=== PATIENT | female | born 1955 | race Caucasian/White ===

== ENCOUNTER → 2018-04-17 06:49 | Outpatient (CLI) | payer BC, SELFPAY ==
[2018-04-17 08:53] LABS: Cholesterol 242 mg/dL (140-199); HDL Cholesterol 52 mg/dL (40-60); LDL Cholesterol Calculated 155 mg/dL (<100); Triglycerides 173 mg/dL (35-150)
== END ==
PROVIDERS: PCP Internal Medicine; Visit Provider Internal Medicine
DX: E66.9 Obesity, unspecified (principal); E78.5 Hyperlipidemia, unspecified
CPT/HCPCS: 36415; 80061

== ENCOUNTER → 2018-10-03 15:59 | Outpatient (CLI) | payer BC, SELFPAY ==
[2018-10-03 16:38] LABS: Add Manual Diff / Slide Review NO; Basophils Percent Auto 0.8 % (0-2); Eosinophils Percent Auto 3.1 % (2-4); Hematocrit 43.2 % (36-46); Hemoglobin 14.4 g/dL (12.0-16.0); Lymphocytes Percent Auto 22.5 % (25-40); Mean Corpuscular HGB Conc 33.5 % (30-36); Mean Corpuscular Volume 83.7 fL (80-100); Monocytes Percent Auto 8.6 % (3-14); Neutrophils Absolute Auto 3600 /uL (3000-5900); Platelet Count 181 X10^3/uL (150-400); Red Blood Cell Count 5.16 X10^6/uL (4.0-5.2); Red Cell Distribution Width 14.1 % (11.6-14.8); White Blood Cell Count 5.5 X10^3/uL (4.5-11.0)
[2018-10-03 17:03] LABS: Erythrocyte Sedimentation Rate 18 MM/HR (0-20)
[2018-10-03 17:41] LABS: Alanine Aminotransferase 31 IU/L (9-52); Albumin 4.4 g/dL (3.5-5.0); Albumin Globulin Ratio 1.6 (1.0-2.8); Alkaline Phosphatase 84 U/L (38-126); Aspartate Aminotransferase 17 IU/L (14-36); BUN Creatinine Ratio 23.8 (6-22); Bilirubin Total 0.3 mg/dL (0.2-1.3); Blood Urea Nitrogen 19 mg/dL (7-17); Calcium 9.8 mg/dL (8.4-10.2); Carbon Dioxide 23 mmol/L (22-32); Chloride 106 mmol/L (98-107); Estimated Glomerular Filt Rate > 60.0 mL/min (>60); Globulin 2.7 g/dL (1.7-4.1); Glucose 91 mg/dL (80-110); HEMOLYSIS 20 (0-50); Lipase 108 U/L (23-300); Potassium 4.2 mmol/L (3.4-5.1); Sodium 143 mmol/L (137-145); Total Protein 7.1 g/dL (6.3-8.2)
== END ==
PROVIDERS: Family Provider Internal Medicine; PCP Internal Medicine; Visit Provider Internal Medicine
DX: R10.32 Left lower quadrant pain (principal)
CPT/HCPCS: 36415; 80053; 83690; 85025; 85651

== ENCOUNTER → 2018-10-04 06:51 | Outpatient (CLI) | payer BC, SELFPAY ==
--- NOTE | 2018-10-04 08:39 | DI.CT.S_ITS ---
PROCEDURE: CT ABDOMEN PELVIS W CON INDICATIONS: ABDOMINAL PAIN/R LOWER QUADRANT TECHNIQUE: After the administration of oral and intravenous contrast, 5 mm thick sections acquired from the diaphragms to the symphysis. 5 mm thick coronal and sagittal reformats were performed. For radiation dose reduction, the following was used: automated exposure control, adjustment of mA and/or kV according to patient size. COMPARISON: None. FINDINGS: Image quality: Excellent. ABDOMEN: Lung bases: Lung bases are clear. Heart size is normal. Solid organs: Hepatic steatosis otherwise liver is normal in size and enhancement. Gallbladder is unremarkable. Biliary system is non-dilated. Pancreas enhances normally. Spleen is normal in size and enhancement. No adrenal nodules. Kidneys are normal in size and enhancement, without hydronephrosis. Peritoneum and bowel: Presumed duodenal diverticulum. Possible distal esophageal wall thickening. Stomach, small bowel, and colon loops are normal in caliber and wall thickness. No free fluid or air. Appendix appears enlarged measuring 10 mm in diameter. There is periappendiceal fat stranding. No abscess identified. No definite appendicolith is seen. Nodes and vessels: No retroperitoneal or mesenteric adenopathy. Aorta and inferior vena cava are normal in caliber. Miscellaneous: No ventral hernias. PELVIS: Genitourinary: Bladder wall thickness is normal. Miscellaneous: No inguinal hernias or adenopathy. Bones: No suspicious bony lesions. No vertebral body compression fractures. Prominent exostosis arising off the left inferior pubic ramus. IMPRESSION: Acute appendicitis. No abscess identified. Findings immediately and personally telephoned and discussed with Dr. Duque, covering for Dr. Rodriguez, on 10/04/18 at 1045 hours. Dictated by: Ariel Decker M.D. on 10/04/2018 at 10:37 Approved by: Ariel Decker M.D. on 10/04/2018 at 10:47
[2018-10-04 08:42] LABS: Adenovirus F 40/41 Not Detected (Not Detect); Astrovirus Not Detected (Not Detect); Campylobacter Not Detected (Not Detect); Clostridium difficile toxin AB Not Detected (Not Detect); Cryptosporidium Not Detected (Not Detect); Cyclospora cayetanensis Not Detected (Not Detect); Entamoeba histolytica Not Detected (Not Detect); Enteroaggregative E.coli Not Detected (Not Detect); Enteropathogenic E.coli Not Detected (Not Detect); Enterotoxigenic E.coli It/st Not Detected (Not Detect); Giardia lamblia Not Detected (Not Detect); Norovirus GI/GII Not Detected (Not Detect); Plesiomonsa shigelloides Not Detected (Not Detect); Rotavirus A Not Detected (Not Detect); Salmonella Not Detected (Not Detect); Sapovirus Not Detected (Not Detect); Shiga-like toxin-prod E.coli Not Detected (Not Detect); Shigella/Enteroinvasive E.coli Not Detected (Not Detect); Vibrio Not Detected (Not Detect); Vibrio cholerae Not Detected (Not Detect); Yersinia enterocolitica Not Detected (Not Detect)
== END ==
PROVIDERS: PCP Internal Medicine; Visit Provider Internal Medicine
DX: K35.80 Unspecified acute appendicitis (principal); R10.31 Right lower quadrant pain
CPT/HCPCS: 74177; 87507; Q9967

== ENCOUNTER 2018-10-04 17:26 | Observation (INO) | payer BC, SELFPAY ==
[2018-10-04 18:35] VITALS: BP 133/65; PULSE 64; RESP 16; TEMP 36.4; O2SAT 98
--- NOTE | 2018-10-04 18:56 | PM.HP.1 ---
History of Present Illness Date Patient Seen: 10/04/18 Time Patient Seen: 18:39 Chief complaint: APPENDICTIS Narrative: The patient is a woman who has been having months of abdominal bloating. She has had some vague fleeting discomfort across her abdomen for weeks. For the last 6 days she had pain that settled in the right lower quadrant. It was worse with bending over or walking. She has been a little anorexic but no vomiting. Last colonoscopy was over 5 years ago. She has a family history of colon cancer in her grandmother. He chews hungry. She had a pastry this morning at about 9 along with some tea and then drank 16 oz of Gatorade about 5:00 p.m. before the results of her CT scan were known to her. She has not really been running a fever. Patient History Surgical History History of bilateral carpal tunnel release (Resolved) History of left breast biopsy (Resolved) Family & Social History Tobacco & Substance use: Smoking Status Never smoker Meds Home Medications Medication Instructions Recorded Confirmed Type azithromycin 250 mg tablet See Label Instructions PO .COMPLEX 05/17/18 Rx #6 tab Allergies Allergy/AdvReac Type Severity Reaction Status Date / Time Sulfa (Sulfonamide Allergy Unknown Verified 10/04/18 19:00 Antibiotics) [SULFA (SULFONAMIDE ANTIBIOTICS)] Review of Systems Review of Systems Patient denies any double vision pain arise earache sore throat or trouble swallowing. No asthma. She did have symptoms that she was coming down with a cold earlier in the week but that resolved. No chest pain or heart problems. She was having some numbness in her arms and underwent a cardiac workup that was negative. No hypertension. Patient denies black or bloody bowel movements. No seizures or blackouts. No problems with her thyroid pancreas she is aware of. No unusual bruising or bleeding. Exam Narrative Exam Narrative: Operative pleasant woman in no apparent distress. Vital signs noted. Her eyes are nonicteric. Pupils equal round react to light. Conjunctiva pink. No swelling of the lids. Nasal septum midline. No polyps seen. Oral mucosa is pink moist. Teeth are intact. No open lesions. Lips have no splits. Gums appear to be healthy. [place] neck is supple. There are no nodes in the neck or supraclavicular areas. Trachea is midline and mobile. Thyroid is not enlarged. There are no masses that could thyroid. Lungs are clear to auscultation without rales or rhonchi. Equal percussion. Heart regular rate and rhythm without murmur gallop. No bruit in the neck. Her abdomen is protuberant soft. No ventral hernias. No masses. Localized tenderness the right lower quadrant. Small bruise to the left of the umbilicus. Patient's legs are hairless from shaving. She has 2+ dorsalis pedis pulses bilaterally. No open lesions of her lower extremities or arms. Extraocular movements are intact. Tongue is midline face is symmetric uvula elevates in the midline. Patient's speech rate and content are appropriate affect is appropriate. She is oriented. Objective Imaging CT scan - abdomen: My impression: Inflammatory changes near the cecum. Very localized. Labs Labs: Reported to me by Dr. Duque white blood cell count is 13. Assessment & Plan (1) Right lower quadrant pain: Problem details: Frankly, this patient's symptoms are a bit unusual. She has been having vague abdominal bloating for months. She has had pain for about 6 days and I would have expected a perforation and abscess by now. That is not apparent on her CT scan. In fact I would expect her to be much more tender than she is. Could be something unusual going on or it may just be an appendix that has been sealed by the omentum and surrounding intestine. In any event I would repair recommended laparoscopy and appendectomy. I have discussed this with the patient in the presence of her . Risks of bleeding infection abscess formation discussed. Possibly use of a drain discussed. She appears to understand. All questions answered. Current visit: Yes Status: Acute
[2018-10-04] MEDS: CEFOTETAN 2 GM/50 ML PIGGYBACK IV (19:04)
[2018-10-04] MEDS: DEXTROSE 5%-LACTATED RINGERS 1,000 ML 125 ML IV (19:04)
[2018-10-04 19:34] VITALS: BMI 34.2
[2018-10-04] MEDS: ENOXAPARIN 40 MG/0.4 ML SYRINGE SUBCUT (20:15)
--- NOTE | 2018-10-04 21:02 | PC.NURSE ---
Patient is A&O x3 pleasant and cooperative w/ staff and able to make needs known when needed. Patient signed consent form w/ this nurse after discussing plan and surgery with Dr. Mcclure tomorrow. Patient reports she has no questions and that all were answered by provider and nursing staff. Patient does report to the this nurse of her concerns with sensitivity to anesthesia as she is very ill with N/V for several days post-op. Explained to patient that this will be noted in nurse note and passed along in shift report to be re-iderated to surgical staff in AM. Patient understand to use call light w/ needs, call light w/ in reach, bed in low pos.
[2018-10-04 21:34] VITALS: BP 119/74; PULSE 54; RESP 16; TEMP 36.6; O2SAT 97
[2018-10-04 23:20] VITALS: BP 111/77; PULSE 58; RESP 18; TEMP 36.7; O2SAT 97
[2018-10-05] VITALS (13 sets, daily range): BP systolic 101–137; BP diastolic 52–81; PULSE 58–93; RESP 14–18; TEMP 36.4–36.8; O2SAT 93–99; BMI 34.2
--- NOTE | 2018-10-05 | PATH_ITS ---
[facility] Accession Number: [id number] . 01 Material submitted: . APPENDIX . 02 Diagnosis: Appendix, Appendectomy: Acute appendicitis with perforation. No evidence of neoplasm. MRV/10/09/2018 . 02 Electronically signed: . Missael Obregon MD, PhD, Pathologist NPI- [id number] . 01 Gross description: . Received in formalin, labeled appendix, is an intact appendix (length-3.3 cm, diameter-0.9 cm) with a culp-pink smooth and shiny serosa and attached mesoappendix (up to 3.0 cm in depth). The resection margin is received opened. The lumen is stenotic and void of contents. The wall is up to 0.4 cm thick. Multiple perforations are identified opening into the mesoappendix. The resection margin is inked black. Section code: (A1) resection margin en face and two additional serial sections; (A2) one-half of the bivalved tip. ([id number]) /[facility] . 02 Pathologist provided ICD-10: K35.20 . 02 CPT . 090261 Performed at: 01 [facility] [address], [place], [place] [id number] MD Ralph Cazares MD Phone: [phone] Performed at: 02 [facility] [address] [place], [place] [id number] MD Claudia Dennis MD Phone: [phone]
[2018-10-05] MEDS: metroNIDAZOLE 500 MG/100 ML PIGGYBACK 100 MG IV ×5 (00:21→22:10)
[2018-10-05] MEDS: DEXTROSE 5%-LACTATED RINGERS 1,000 ML 125 ML IV (04:42)
[2018-10-05 05:58] LABS: Add Manual Diff / Slide Review NO; Basophils Percent Auto 0.5 % (0-2); Eosinophils Percent Auto 3.6 % (2-4); Hematocrit 41.2 % (36-46); Hemoglobin 13.8 g/dL (12.0-16.0); Lymphocytes Percent Auto 25.3 % (25-40); Mean Corpuscular HGB Conc 33.5 % (30-36); Mean Corpuscular Hemoglobin 27.9 PG (26-34); Mean Corpuscular Volume 83.1 fL (80-100); Monocytes Percent Auto 9.3 % (3-14); Neutrophils Absolute Auto 2300 /uL (3000-5900); Neutrophils Percent Auto 61.3 % (50-75); Platelet Count 160 X10^3/uL (150-400); Red Blood Cell Count 4.96 X10^6/uL (4.0-5.2); White Blood Cell Count 3.7 X10^3/uL (4.5-11.0)
[2018-10-05 06:04] LABS: BUN Creatinine Ratio 12.2 (6-22); Blood Urea Nitrogen 11 mg/dL (7-17); Calcium 9.2 mg/dL (8.4-10.2); Carbon Dioxide 29 mmol/L (22-32); Chloride 107 mmol/L (98-107); Estimated Glomerular Filt Rate > 60.0 mL/min (>60); Glucose 122 mg/dL (80-110); HEMOLYSIS < 15 (0-50); Potassium 4.3 mmol/L (3.4-5.1); Sodium 144 mmol/L (137-145)
[2018-10-05] MEDS: LACTATED RINGERS 1,000 ML 42 ML IV ×2 (08:00→09:34)
[2018-10-05] MEDS: APREPITANT 40 MG CAPSULE PO (08:10)
--- NOTE | 2018-10-05 08:25 | PM.PREOP ---
Pre-operative Note Interval Note Pre-op Check: Yes History & Physical Reviewed by Physician and Yes Exam Performed Changes: No
[2018-10-05] MEDS: CEFOTETAN 2 GM/50 ML PIGGYBACK IV ×2 (08:30→17:45)
--- NOTE | 2018-10-05 08:53 | SUR.OPER ---
Supine on padded OR bed, head on pillow, arm padded and tucked at side, legs uncrossed, safety belt at thigh, tape over blanket over lower legs .
[2018-10-05] MEDS: BUPIVACAINE 0.5% (PF) VIAL 30 ML INJ (09:12)
--- NOTE | 2018-10-05 10:13 | PM.OP.1 ---
Operative Date/Time/Diagnoses Date of procedure: 10/05/18 Time of procedure: 10:05 Pre-op diagnosis: Appendicitis acute Post-op diagnosis: same Procedure & Clinicians Procedure: Laparoscopic appendectomy Same procedure as scheduled: Yes Indications: Right lower quadrant pain and tenderness, elevated white blood cell count , and an abnormal CT scan Surgeon: Kwasi Mcclure Click Yes if Unassisted: Yes Anesthesia Type: General Operative Notes Findings: Thickened mildly red appendix with a normal base Closure Type: primary Estimated Blood Loss (mL): 10 Blood products transfused: none Procedure in detail: Patient is placed supine on the operating room table and underwent general endotracheal anesthesia. She was prepped and draped in the usual fashion. Local anesthetic was infiltrated and a curvilinear incision made beneath the umbilicus. She had a very thick layer of subcutaneous fat and was difficult to enter the abdomen. Fascia was opened and stay sutures were placed in the fascia of 0 Polysorb. The peritoneum was entered and a Rodriguez cannula was inserted. Abdomen was insufflated and 2 additional ports were placed in the abdominal wall. One was between the pubis in the umbilicus and the 2nd was in the left lower quadrant. The appendix was readily identified is a thickened slightly reddened structure with a normal base. I divided the mesoappendix and cauterized the artery. The base was cleared and the loop of 0 PDS was placed at the base of the appendix. A clamp was placed across the appendix and the appendix was divided between the clamp on the tie. The mucosa was cauterized and the appendix was immediately placed in a bag and removed without spillage. The right lower quadrant irrigated as was the pelvis. It was suctioned free of fluid. No other abnormalities were seen. The uterus was normal in appearance. I saw no evidence of any kind of malignancy the omental caking or abnormalities of the small bowel. The liver looked normal. The ports were all removed. The stay sutures at the umbilicus were tied and additional 2 0 Maxon was placed between the the the the stay sutures. Wounds were irrigated and the skin was the 4 0 Polysorb subcuticular stitch and Steri-Strips. Dressing was applied the patient was awakened extubated taken to recovery area good condition. Complications: none Condition: stable Disposition: PACU
--- NOTE | 2018-10-05 10:24 | SUR.PHASEI ---
LR infused 1200 since admit to PACU
[2018-10-05] MEDS: LACTATED RINGERS 1,000 ML 125 ML IV ×2 (11:55→22:09)
[2018-10-05] MEDS: MORPHINE 4 MG/ML INJ IV (12:05)
[2018-10-05] MEDS: IBUPROFEN 600 MG TABLET PO (12:44)
[2018-10-05] MEDS: ONDANSETRON 4 MG/2 ML INJ IV ×2 (12:50→16:32)
--- NOTE | 2018-10-05 15:55 | PC.NURSE ---
Pt returned to the floor from PACU at 1030; IV fluids infusing; O2 RA=98%; CPAP for sleeping; Pt reported severe gastric pain, improved with IV morphine and PO Ibuprofen; IV zofran for mild nausea, pt tolerating clear liquids; pt also reports muscle tightness to right shoulder, this RN massaged shoulder for 10 min; 3 bandages to lap incisions c/d/i; pt's in room
[2018-10-05] MEDS: SCOPOLAMINE 1 PATCH TOP (17:38)
[2018-10-05] MEDS: METOCLOPRAMIDE 10 MG/2 ML INJ IV (17:38)
[2018-10-05] MEDS: ENOXAPARIN 40 MG/0.4 ML SYRINGE SUBCUT (22:13)
--- NOTE | 2018-10-05 22:40 | PC.NURSE ---
10/05 2240; pt took a walk in ward at 1600, tolerated well and sat in chair in preparation for dinner, started feel queezy and asked for prn antiemetic around 1645, emesis produced by 1700. With continued nausea post zofran administration, notified and new orders received, scopalamine patch administered along with IV reglan. Pt requested to take nap and stated complete relief after hour nap at 1900, tolerated soup, juice and cup of tea. Denies any more nausea and denies pain. Otherwise VSS on RA, lap sites c/d/i. Pt states to have not yet passed gas at end of shift.
[2018-10-06] VITALS: O2SAT 94
[2018-10-06] MEDS: metroNIDAZOLE 500 MG/100 ML PIGGYBACK 100 MG IV (05:17)
[2018-10-06 06:24] VITALS: BP 102/61; PULSE 54; RESP 16; TEMP 36.6; O2SAT 96
[2018-10-06] MEDS: CEFOTETAN 2 GM/50 ML PIGGYBACK IV (06:25)
[2018-10-06 08:00] VITALS: BP 115/57; PULSE 45; RESP 16; TEMP 36.6; O2SAT 99
[2018-10-06 08:30] VITALS: O2SAT 99
[2018-10-06] MEDS: ENOXAPARIN 40 MG/0.4 ML SYRINGE SUBCUT (09:00)
[2018-10-06] MEDS: LACTATED RINGERS 1,000 ML 125 ML IV (09:01)
--- NOTE | 2018-10-06 10:27 | P.DS_ITS ---
History of Present Illness Chief complaint: APPENDICTIS Narrative: The patient is a woman who has been having months of abdominal bloating. She has had some vague fleeting discomfort across her abdomen for weeks. For the last 6 days she had pain that settled in the right lower quadrant. It was worse with bending over or walking. She has been a little anorexic but no vomiting. Last colonoscopy was over 5 years ago. She has a family history of colon cancer in her grandmother. He chews hungry. She had a pastry this morning at about 9 along with some tea and then drank 16 oz of Gatorade about 5:00 p.m. before the results of her CT scan were known to her. She has not really been running a fever. Discharge Providers Date of admission: 10/04/18 17:26 Primary care physician: Inder Rodriguez MD Consults: 10/05/18 10:47 Consult to Discharge Planning Routine Comment: Discharge provider: Kwasi Mcclure MD Discharge Date: 10/06/18 Summary Discharge Diagnosis: 1. acute appendicitis 2. Acute Postoperative nausea most likely related to intraoperative narcotics. Resolved at discharge Hospital Course: Patient underwent a laparoscopic appendectomy the morning after her admission. She had had p.o. immediately prior to arrival so we waited until the morning to perform her operation. Her postoperative course was smooth except for some episodes of nausea and vomiting. These resolved with medication and she was tolerating a general diet at discharge. She is to use the pain medication she has at home. She would like to avoid these narcotics given her nausea. She can remove the scope L [place] patch in a couple of days. She should wash the area and her hands carefully and avoid touching her eyes. Status at Discharge Cognitive/behavioral status at discharge: Normal Functional status at discharge: independent ambulation Overall status at discharge: patient is progressing back to baseline ( Recovering from operation) Time Spent with Patient Less than 30 minutes Exam Vital Signs (past 8 hours): - 10/06/18 06:24 10/06/18 08:00 Temperature 97.8 F 97.9 F Pulse Rate 54 L 45 L Respiratory Rate 16 16 Blood Pressure 102/61 115/57 L Pulse Oximetry 96 99 Oxygen Delivery Method Room Air Narrative Exam Narrative: Lungs are clear to auscultation no rales or rhonchi heart regular rate and rhythm without murmur gallop. Abdomen is soft no unusual tenderness. Some bruising about the umbilicus is seen. Her vital signs are within normal limits. Objective Labs Result Diagrams: 10/05/18 05:40 10/05/18 05:40 Discharge Plan Discharge Plan Patient Disposition: Home Discharge comment: You had a laparoscopic appendectomy. You will probably have bruising around her belly button. Do not plan to return to work until next week. He should call my office to make an appointment to be seen by me in 1-[address] you are pain free off medication. You can use Tylenol or Motrin/ibuprofen at home. Use up to 600 mg 4 times a day of the ibuprofen or 800 mg 3 times a day. Try to take it with food. Use a laxative of choice should he become constipated. He may use MiraLax daily as well. Discharge Med Rec/Prescriptions Prescriptions: Continue fluconazole 150 mg Tablet 150 mg PO Q3D RF: 0 Alertec 10 mg tablet 10 mg PRN PRN (Reason: Allergy Symptoms) RF: 0 Aspir-Low 81 mg 81 mg DAILY RF: 0 Discontinued metronidazole 250 mg Tablet 250 mg PO QID RF: 0 levofloxacin 500 mg Tablet 500 mg PO DAILY RF: 0 Provider Discharge Instructions Diet: Diet as Tolerated Activity: Do not lift over 10 lb or strain for 4 weeks. Avoid pool or tub for least [address] you are pain free off medication. Skin/Wound/Dressing Care Report to your healthcare provider any signs of infection, such as:: chills, fever, night sweats, increased pain and unusual drainage Dressing: You may remove the Band-Aids tomorrow and shower. Leave the tape under the Band-Aids fall off on their own. Discharge Data Primary Care Provider: Inder Rodriguez Attending Provider: Kwasi Mcclure Admit Date/Time: 10/04/18 17:26
--- NOTE | 2018-10-06 11:04 | PC.NURSE ---
Pt ready for discharge home. Spouse is at the bedside. Pt IV removed. NO new prescriptions/no narcotics. Reviewed d/c info with Pt and Spouse-discussed showering, wound care, stroke education, diet, constipation resolution. Pt denied further questions and is ready to be taken out to POV with Spouse and all belongings.
== END 2018-10-06 11:13 | disposition home or self-care (01) ==
PROVIDERS: Admitting Provider Specialist; PCP Internal Medicine; Visit Provider Specialist
PROC: 0DTJ4ZZ Resection of Appendix, Percutaneous Endoscopic Approach (ICD-10-PCS; CPT 44970; principal; 2018-10-05 08:00)
DX: K35.32 Acute appendicitis with perforation, localized peritonitis, and gangrene, without abscess (principal); R10.31 Right lower quadrant pain
CPT/HCPCS: 44970; 36415; 74177; 80048; 85025; 87507; G0378; G0379; J1100; J1650; J2270; J2405; J2704; J2765; J3010; J7121; J8501; Q9967

== ENCOUNTER → 2018-12-24 06:39 | Outpatient (CLI) | payer BC, SELFPAY ==
[2018-10-07 16:19] VITALS: BMI 34.2
[2018-12-24 12:17] LABS: Adenovirus F 40/41 Not Detected (Not Detect); Astrovirus Not Detected (Not Detect); Campylobacter Not Detected (Not Detect); Clostridium difficile toxin AB Not Detected (Not Detect); Cryptosporidium Not Detected (Not Detect); Cyclospora cayetanensis Not Detected (Not Detect); Entamoeba histolytica Not Detected (Not Detect); Enteroaggregative E.coli Not Detected (Not Detect); Enteropathogenic E.coli Not Detected (Not Detect); Enterotoxigenic E.coli It/st Not Detected (Not Detect); Giardia lamblia Not Detected (Not Detect); Norovirus GI/GII Not Detected (Not Detect); Plesiomonsa shigelloides Not Detected (Not Detect); Rotavirus A Not Detected (Not Detect); Salmonella Not Detected (Not Detect); Sapovirus Not Detected (Not Detect); Shiga-like toxin-prod E.coli Not Detected (Not Detect); Shigella/Enteroinvasive E.coli Not Detected (Not Detect); Vibrio Not Detected (Not Detect); Vibrio cholerae Not Detected (Not Detect); Yersinia enterocolitica Not Detected (Not Detect)
== END ==
PROVIDERS: PCP Internal Medicine; Visit Provider Internal Medicine
DX: R10.30 Lower abdominal pain, unspecified (principal); R19.7 Diarrhea, unspecified
CPT/HCPCS: 87507

== ENCOUNTER → 2019-01-29 16:08 | Outpatient (CLI) | payer MEDICARE, SELFPAY ==
[2018-10-07 16:19] VITALS: BMI 34.2
--- NOTE | 2019-01-29 | DI.MG.S_ITS ---
BILATERAL DIGITAL SCREENING MAMMOGRAM 3D/2D WITH CAD: 01/29/2019 CLINICAL: Routine screening. Family history of breast cancer. Comparison is made to exams dated: 01/23/2018 mammogram, 06/28/2016 mammogram, 10/06/2014 mammogram - [facility], and 11/08/2012 mammogram - [facility]. There are scattered fibroglandular elements in both breasts. Current study was also evaluated with a Computer Aided Detection (CAD) system. There are benign post operative findings in the left breast. No significant masses, calcifications, or other findings are seen in either breast. There has been no significant interval change. IMPRESSION: There is no mammographic evidence of malignancy. A 1 year screening mammogram is recommended. This exam was interpreted at Station ID: [id number]. NOTE: For mammograms, a report in lay terms will be sent to the patient. Approximately 15% of breast malignancies will not be visualized mammographically. In the management of a palpable breast mass, a negative mammogram must not discourage biopsy of a clinically suspicious lesion. Electronically Signed By: Tony oh/janny:01/29/2019 18:33:03 letter sent: Normal Exam ACR BI-RADS Category 2: Benign Finding(s) 3342F
== END ==
PROVIDERS: PCP Internal Medicine; Visit Provider Internal Medicine
DX: Z12.31 Encounter for screening mammogram for malignant neoplasm of breast (principal); Z80.3 Family history of malignant neoplasm of breast
CPT/HCPCS: 77063; 77067

== ENCOUNTER → 2019-11-06 07:25 | Outpatient (CLI) | payer MEDICARE, SELFPAY ==
[2018-10-07 16:19] VITALS: BMI 34.2
--- NOTE | 2019-11-06 | DI.MRI.S_ITS ---
PROCEDURE: MR WRIST LT W CON INDICATIONS: EXTENSOR INTERSECTION SYNDROME OF LEFT WRIST TECHNIQUE: After the administration of 3-4 mL of dilute intra-articular Gadolinium contrast into the radiocarpal compartment, coronal T1 spin echo with fat saturation and T2 fast spin echo with fat saturation, axial T1 spin echo and T2 fast spin echo with fat saturation, sagittal T1 spin echo with and without fat saturation through the wrist. COMPARISON: [facility], CR, XR WRIST 3+ VIEWS LEFT, 08/01/2019, 7:57. FINDINGS: Image quality: Excellent. Bones and cartilage: The carpal bones are normally aligned. Osteoarthritic changes are noted along radial aspect of left wrist particularly involving first CMC joint and scaphotrapezial joint. There is marrow edema involving distal portion of scaphoid. No discrete fracture line is seen and likely represent bony contusion. No other area of abnormal marrow signal is seen. Carpal ligaments: The scapholunate and lunotriquetral ligaments appear intact, without gadolinium extravasation into the mid-carpal compartment. The radioscaphocapitate and radiolunotriquetral ligaments appear intact. The arcuate ligament and short radiolunate ligament also appear normal. The dorsal intercarpal and radiotriquetral ligaments appear intact. On sagittal images, the pisohamate ligament appears intact. Triangular fibrocartilage complex: The triangular fibrocartilage disc, with its styloid and foveal lamina, appears intact. No gadolinium extravasation into the distal radioulnar joint. The adjacent meniscal homolog appears normal. The ulnar collateral ligament appears intact. The extensor carpi ulnaris tendon is normal in location and morphology. Tendons and soft tissues: The carpal tunnel structures appear normal, including the median nerve. The ulnar nerve appears normal within Guyon's canal. There is markedly thickened abductor pollicis longus tendon and extensor pollicis brevis tendon with heterogeneous intrasubstance hyperintensity T2 signal and small amount of fluid surrounding tendon sheath consistent with tenosynovitis and tendinosis in the above-mentioned extensor tendons. Rest of the extensor tendon compartments demonstrate normal morphology, without pathologic tendon sheath fluid. No soft tissue ganglion cysts. IMPRESSION: 1. Tenosynovitis and tendinosis involving extensor pollicis brevis and abductor pollicis longus tendons beginning at the level of distal radius extending to the level of first CMC joint. No full-thickness tendon rupture. 2. Rest of tendons and ligaments are intact. Regular fibrocartilage complex is intact. 3. 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 No fracture or dislocation. Likely bony contusion involving distal portion of scaphoid. Dictated by: Oliver Hudson M.D. on 11/06/2019 at 9:38 Approved by: Oliver Hudson M.D. on 11/06/2019 at 10:09
--- NOTE | 2019-11-06 | DI.RAD.S_ITS ---
PROCEDURE: FL WRIST INJECTION MR/CT LT INDICATIONS: EXTENSOR INTERSECTION SYNDROME OF LEFT WRIST TECHNIQUE: After informed consent had been obtained, the wrist was examined fluoroscopically, and a site chosen for injection of the radiocarpal compartment from a dorsal approach. Skin was prepped and draped in a sterile fashion and 1% lidocaine infiltrated from the skin down to the articular surface. A hypodermic needle was then introduced into the articular space and a modest amount of contrast medium was instilled confirming intra-articular needle tip placement, by Dr. Romero. This was followed by approximately 4 mL of a dilute gadolinium solution. Needle was removed and dressing was applied. The patient experienced no complications throughout the procedure and left the fluoroscopic suite in no apparent distress. FINDINGS: A single fluoroscopic spot image demonstrates intra-articular location to injected iodinated contrast. IMPRESSION: Successful fluoroscopic-guided administration of dilute Gadolinium solution for wrist MR arthrogram. Dictated by: Keshawn Ford M.D. on 11/07/2019 at 17:44 Approved by: Keshawn Ford M.D. on 11/07/2019 at 17:45
== END ==
PROVIDERS: PCP Internal Medicine; Visit Provider Orthopaedic Surgery
DX: M65.832 Other synovitis and tenosynovitis, left forearm (principal); M19.032 Primary osteoarthritis, left wrist
CPT/HCPCS: 20605; 73222; 76000

== ENCOUNTER → 2020-01-28 07:02 | Outpatient (CLI) | payer MEDICARE, SELFPAY ==
[2018-10-07 16:19] VITALS: BMI 34.2
[2020-01-28 08:09] LABS: Add Manual Diff / Slide Review NO; Basophils Absolute Auto 0 /uL (0-100); Eosinophils Absolute Auto 100 /uL (0-450); Eosinophils Percent Auto 2.9 % (2-4); Hematocrit 45.4 % (36-46); Hemoglobin 15.2 g/dL (12.0-16.0); Lymphocytes Absolute Auto 800 /uL (1100-4500); Lymphocytes Percent Auto 17.4 % (25-40); Mean Corpuscular HGB Conc 33.5 % (30-36); Mean Corpuscular Volume 83.5 fL (80-100); Monocytes Absolute Auto 300 /uL (0-900); Monocytes Percent Auto 6.8 % (3-14); Neutrophils Absolute Auto 3400 /uL (1500-7000); Neutrophils Percent Auto 71.9 % (50-75); Platelet Count 173 X10^3/uL (150-400); Red Blood Cell Count 5.44 X10^6/uL (4.0-5.2); Red Cell Distribution Width 14.6 % (11.6-14.8); White Blood Cell Count 4.7 X10^3/uL (4.5-11.0)
[2020-01-28 08:49] LABS: Alanine Aminotransferase 21 IU/L (<35); Albumin 4.4 g/dL (3.5-5.0); Albumin Globulin Ratio 1.5 (1.0-2.8); Alkaline Phosphatase 87 U/L (38-126); Aspartate Aminotransferase 18 IU/L (14-36); BUN Creatinine Ratio 25.7 (6-22); Bilirubin Total 0.4 mg/dL (0.2-1.3); Blood Urea Nitrogen 18 mg/dL (7-17); Calcium 9.8 mg/dL (8.4-10.2); Carbon Dioxide 24 mmol/L (22-32); Chloride 106 mmol/L (98-107); Cholesterol 236 mg/dL (140-199); Estimated Glomerular Filt Rate > 60.0 mL/min (>60); Glucose 111 mg/dL (80-110); HDL Cholesterol 48 mg/dL (40-60); HEMOLYSIS < 15 (0-50); LDL Cholesterol Calculated 152 mg/dL (<100); Potassium 4.2 mmol/L (3.4-5.1); Sodium 139 mmol/L (137-145); Total Protein 7.4 g/dL (6.3-8.2); Triglycerides 178 mg/dL (35-150)
[2020-01-28 09:18] LABS: TSH w/ Reflex to FT4 4.34 uIU/mL (0.47-4.68)
== END ==
PROVIDERS: PCP Internal Medicine; Referring Provider Internal Medicine; Visit Provider Internal Medicine
DX: E78.5 Hyperlipidemia, unspecified (principal); G47.33 Obstructive sleep apnea (adult) (pediatric); M15.0 Primary generalized (osteo)arthritis; E66.9 Obesity, unspecified
CPT/HCPCS: 36415; 80053; 80061; 84443; 85025

== ENCOUNTER → 2020-01-28 14:41 | Outpatient (CLI) | payer MEDICARE, SELFPAY ==
[2018-10-07 16:19] VITALS: BMI 34.2
== END ==
PROVIDERS: PCP Internal Medicine; Referring Provider Internal Medicine; Visit Provider Internal Medicine
DX: Z78.0 Asymptomatic menopausal state (principal); Z82.62 Family history of osteoporosis; M15.0 Primary generalized (osteo)arthritis; E66.9 Obesity, unspecified; E78.5 Hyperlipidemia, unspecified; G47.33 Obstructive sleep apnea (adult) (pediatric)
CPT/HCPCS: 36415; 77080; 80053; 80061; 84443; 85025

== ENCOUNTER → 2020-01-29 16:05 | Outpatient (CLI) | payer MEDICARE, SELFPAY ==
[2018-10-07 16:19] VITALS: BMI 34.2
--- NOTE | 2020-01-29 | DI.MG.S_ITS ---
BILATERAL DIGITAL SCREENING MAMMOGRAM 3D/2D WITH CAD: 01/29/2020 CLINICAL: Routine screening. Family history of breast cancer. Comparison is made to exams dated: 01/29/2019 mammogram, 01/23/2018 mammogram, and 06/28/2016 mammogram - [facility]. There are scattered fibroglandular elements in both breasts. Current study was also evaluated with a Computer Aided Detection (CAD) system. There is a possible 0.3 cm irregular equal density asymmetry in the left breast middle depth superior region seen on the mediolateral oblique view only. No other significant masses, calcifications, or other findings are seen in either breast. IMPRESSION: INCOMPLETE: NEEDS ADDITIONAL IMAGING EVALUATION The possible 0.3 cm irregular equal density asymmetry in the left breast is indeterminate. Additional views with possible ultrasound are recommended. This exam was interpreted at Station ID: [id number]. NOTE: For mammograms, a report in lay terms will be sent to the patient. Approximately 15% of breast malignancies will not be visualized mammographically. In the management of a palpable breast mass, a negative mammogram must not discourage biopsy of a clinically suspicious lesion. Electronically Signed By: Roosevelt Gregorio M.D. atjose/:01/30/2020 10:25:10 letter sent: Additional Imaging Needed ACR BI-RADS Category 0: Incomplete [id number]
== END ==
PROVIDERS: PCP Internal Medicine; Referring Provider Internal Medicine; Visit Provider Internal Medicine
DX: Z12.31 Encounter for screening mammogram for malignant neoplasm of breast (principal); Z80.3 Family history of malignant neoplasm of breast
CPT/HCPCS: 77063; 77067

== ENCOUNTER → 2020-02-13 08:57 | Outpatient (CLI) | payer MEDICARE, SELFPAY ==
[2018-10-07 16:19] VITALS: BMI 34.2
--- NOTE | 2020-02-13 | DI.MG.S_ITS ---
UNILATERAL LEFT DIGITAL DIAGNOSTIC MAMMOGRAM 3D/2D WITH ADDITIONAL VIEWS: 02/13/2020 CLINICAL: Additional evaluation requested from prior study. Comparison is made to exams dated: 01/29/2020 mammogram, 01/29/2019 mammogram, and 01/23/2018 mammogram - [facility]. There are scattered fibroglandular elements in left breast. There is a 0.3 cm oval low density asymmetry with an indistinct margin in the left breast middle depth superior region seen on the mediolateral oblique view only. This is less prominent. There also is a 0.6 cm oval equal density asymmetry with an indistinct margin in the left breast posterior depth superior region seen on the mediolateral oblique view only. No other significant masses or calcifications are seen in the breast. IMPRESSION: INCOMPLETE: NEEDS ADDITIONAL IMAGING EVALUATION The 0.3 cm oval low density asymmetry in the left breast middle depth superior region seen on the mediolateral oblique view only is indeterminate. An ultrasound is recommended. The 0.6 cm oval equal density asymmetry in the left breast posterior depth superior region seen on the mediolateral oblique view only is indeterminate. An ultrasound is recommended. This exam was interpreted at Station ID: [id number]. NOTE: For mammograms, a report in lay terms will be sent to the patient. Approximately 15% of breast malignancies will not be visualized mammographically. In the management of a palpable breast mass, a negative mammogram must not discourage biopsy of a clinically suspicious lesion. Electronically Signed By: Ralph asencio/janny:02/13/2020 09:35:24 ACR BI-RADS Category 0: Incomplete 3340F
--- NOTE | 2020-02-13 | DI.US.S_ITS ---
LIMITED ULTRASOUND OF LEFT BREAST: 02/13/2020 CLINICAL: Patient returns today to evaluate a focal asymmetry in the left breast. Comparison is made to exams dated: 02/13/2020 mammogram, 01/29/2020 mammogram, 01/29/2019 mammogram, 01/23/2018 mammogram, 01/11/2017 ultrasound, and 01/11/2017 mammogram - [facility]. Real-time ultrasound of the left breast 11-2 o'clock region was performed on the area of interest. There is a 0.7 cm x 0.3 cm x 0.7 cm oval cyst in the left breast at 1 o'clock middle depth. This oval cyst is hypoechoic with a well-defined boundary and internal echoes. This likely correlates with the 0.6 cm mammography finding. Color flow imaging demonstrates that there is no vascularity present. No other discrete mass identified. IMPRESSION: PROBABLY BENIGN The 0.7 cm x 0.3 cm x 0.7 cm oval complicated cyst in the left breast is probably benign. Follow-up mammogram and ultrasound in 6 months is recommended. There are no abnormalities seen in the left breast to correspond with the 3 mm mammography finding in the superior left breast. A follow-up mammogram and an ultrasound in 6 months are recommended to demonstrate stability. This exam was interpreted at Station ID: [id number]. Electronically Signed By: Ralph asencio/:02/13/2020 10:24:18 letter sent: Followup Recommended Ultrasound BI-RADS: 3 Probably benign
== END ==
PROVIDERS: PCP Internal Medicine; Referring Provider Internal Medicine; Visit Provider Internal Medicine
DX: R92.8 Other abnormal and inconclusive findings on diagnostic imaging of breast (principal); N60.02 Solitary cyst of left breast
CPT/HCPCS: 76642; 77065; G0279

== ENCOUNTER → 2020-08-09 08:30 | Outpatient (CLI) | payer MEDICARE, SELFPAY ==
[2018-10-07 16:19] VITALS: BMI 34.2
[2020-08-10 12:35] LABS: COVID19 Sendout Not Detected (Not Detect)
== END ==
PROVIDERS: PCP Internal Medicine; Visit Provider Physician Assistant
DX: Z11.59 Encounter for screening for other viral diseases (principal)
CPT/HCPCS: 87635

== ENCOUNTER 2020-08-12 07:29 | Day surgery (SDC) | payer MEDICARE, SELFPAY ==
[2018-10-07 16:19] VITALS: BMI 34.2
--- NOTE | 2020-08-12 | PATH_ITS ---
[facility] Accession Number: [id number] . 01 Material submitted: . colon - CECUM POLYP . 01 Clinical history: . SDC . 02 Diagnosis: Cecum, Polyp, Biopsy: Tubular adenoma. MRV 08/17/2020 1238 Local . 02 Electronically signed: . Claudia Dennis MD, Pathologist NPI- [id number] . 01 Gross description: . CECUM POLYP: Received in formalin is 1 fragment(s) of culp, soft tissue measuring 0.4 x 0.3 x 0.3 cm submitted entirely in 1 cassette(s) /QBJ 08/13/2020 0835 Local . 02 Pathologist provided ICD-10: D12.0 . 02 CPT . 298947 Performed at: 01 [facility] [address] [facility], [place], [place] [id number] MD Ralph Cazares MD Phone: [phone] Performed at: 02 [facility] [address] [place], [place] [id number] MD Claudia Dennis MD Phone: [phone]
[2020-08-12 07:53] VITALS: BMI 35.9
[2020-08-12 07:56] VITALS: BP 141/88; PULSE 69; RESP 17; TEMP 36.4; O2SAT 97
[2020-08-12] MEDS: LACTATED RINGERS 1,000 ML 42 ML IV (07:59)
--- NOTE | 2020-08-12 08:31 | PM.HP.1 ---
History of Present Illness History of Present Illness Date Patient Seen: 08/12/20 Time Patient Seen: 08:31 Chief complaint: SDC Narrative: Patient is here for screening colonoscopy. Her last exam was over 10 years ago. Patient History Medical History Arthritis (Acute) Borderline hyperlipidemia (Acute) Chronic constipation (Acute) Sleep apnea (Acute) Surgical History H/O left breast biopsy (Resolved) History of appendectomy (Resolved) History of bilateral carpal tunnel release (Resolved) History of left breast biopsy (Resolved) Family & Social History Family History Grandmother Breast cancer Cancer Grandfather Prostate CA Mother Diabetes mellitus Stroke Father Heart disease Social History: household members spouse Tobacco & Substance use: Smoking Status Never smoker alcohol intake current alcohol intake frequency holiday/special occasion Substance Use Type does not use Meds Home Medications and Allergies Home Medications Medication Instructions Recorded Confirmed Type aspirin 81 mg PO DAILY #0 10/05/18 08/12/20 History cetirizine [Aller-Dari] 5 mg PO DAILY PRN #0 10/05/18 08/12/20 History sodium,potassium,mag sulfates 17.5 177 ml PO DAILY #354 ml 07/06/20 08/12/20 Rx gram-3.13 gram-1.6 gram oral soln Allergies Allergy/AdvReac Type Severity Reaction Status Date / Time Sulfa (Sulfonamide Allergy Unknown nausea/vomi Verified 08/12/20 07:50 Antibiotics) ting [SULFA (SULFONAMIDE ANTIBIOTICS)] Review of Systems Review of Systems ROS: Yes All systems reviewed with the patient and are negative except as otherwise documented Exam Vital Signs (past 8 hours): - 08/12/20 07:56 Temperature 97.5 F L Pulse Rate 69 Respiratory Rate 17 Blood Pressure 141/88 H Pulse Oximetry 97 Oxygen Delivery Method Room Air Narrative Exam Narrative: Pleasant cooperative patient no apparent distress. Lungs are clear to auscultation. No rales or rhonchi. Heart regular rate and rhythm no murmur gallop. Abdomen is soft nontender without mass. No obvious hernias. Patient is alert and oriented x3. Assessment & Plan Assessment & Plan narrative: The patient for a screening colonoscopy. I have discussed the procedure with them. Risks of bleeding, perforation which would necessitate major operation, failure to find remove all lesions, the potential tattoo were all discussed. All questions were answered. They wished to proceed.
--- NOTE | 2020-08-12 08:32 | PM.PREOP ---
Pre-operative Note COVID-19 COVID-19 status: Negative Result date/Date tested (Pos, Neg/Pending): 08/09/20 Interval Note History & Physical reviewed/Exam performed by Physician: Yes Changes to H&P: No ASA Class (for procedural sedation): I
[2020-08-12] MEDS: ONDANSETRON 4 MG/2 ML INJ IV (08:36)
[2020-08-12] MEDS: MIDAZOLAM 5 MG/5 ML VIAL IV (08:40)
[2020-08-12] MEDS: fentaNYL 250 MCG/5 ML INJ IV (08:41)
--- NOTE | 2020-08-12 08:59 | P.OP.ENDO_ITS ---
Operative Date/Time/Diagnoses Date of procedure: 08/12/20 Time of procedure: 09:00 Pre-op diagnosis: Screening exam. Last exam was over 10 years ago. Post-op diagnosis: same (One small lesion in the cecum which was biopsied and removed. Sigmoid diverticulosis.) Procedure & Clinicians Study performed: Colonoscopy with cold biopsy Same procedure as scheduled: Yes Indications: Screening Surgeon: Kwasi Mcclure Procedure Notes SCOAP/Timeout: Performed Procedure in detail: The patient was placed in the left lateral decubitus position and underwent IV sedation directed by the surgeon consisting of fentanyl and Versed. Digital exam was unremarkable. The scope was inserted and advanced through the rectum into the sigmoid, descending, transverse, and ascending colon. Sigmoid diverticulosis was noted. Pressure was applied and The cecum was reached identified by the ileocecal valve and the appendiceal opening. A small lesion in the cecum was seen and biopsied and removed. The scope was gradually brought out. No other Polyps were found. The scope ultimately was retroflexed in the rectum. The appearance was normal. The scope was removed and the patient tolerated the procedure well. The prep was very goo d Scope withdrawal time: 8 minutes(9.5 total) Sedation minutes: 20 Findings: diverticulosis (Sigmoid) and polyp (Possible cecal polyp) Specimen(s): other (Cecal polyp) Complications: none Post-procedure Recommendations: Colonscopy in 10 years (Unless the tiny lesion is adenomatous in which case 5 years would be more appropriate) Follow up: as needed Disposition: PACU
[2020-08-12 09:02] VITALS: BP 143/85; PULSE 89; RESP 17; TEMP 36.9; O2SAT 93
[2020-08-12 09:09] VITALS: BP 138/85; PULSE 92
[2020-08-12] MEDS: PROCHLORPERAZINE 10 MG/2 ML VIAL IV (09:09)
[2020-08-12 09:10] VITALS: BP 138/85; PULSE 87; RESP 15; TEMP 36.4; O2SAT 95
[2020-08-12 09:13] VITALS: BP 115/69; PULSE 89; RESP 11; TEMP 36.6; O2SAT 96
[2020-08-12 09:30] VITALS: BP 113/72; PULSE 64; RESP 16; TEMP 36.1; O2SAT 97
== END 2020-08-12 09:36 | disposition home or self-care (01) ==
PROVIDERS: PCP Internal Medicine; Referring Provider Specialist; Visit Provider Specialist
PROC: 0DJD8ZZ Inspection of Lower Intestinal Tract, Via Natural or Artificial Opening Endoscopic (ICD-10-PCS; CPT 45378; principal; 2020-08-12 08:45)
DX: Z12.11 Encounter for screening for malignant neoplasm of colon (principal); G47.30 Sleep apnea, unspecified; K57.30 Diverticulosis of large intestine without perforation or abscess without bleeding; D12.0 Benign neoplasm of cecum
CPT/HCPCS: 45380; 99152; J0780; J2250; J2405; J3010

== ENCOUNTER → 2020-08-25 09:22 | Outpatient (CLI) | payer MEDICARE, SELFPAY ==
[2018-10-07 16:19] VITALS: BMI 34.2
--- NOTE | 2020-08-25 | DI.MG.S_ITS ---
UNILATERAL LEFT DIGITAL DIAGNOSTIC MAMMOGRAM 3D/2D SHORT-TERM FOLLOW-UP: 08/25/2020 CLINICAL: Short term follow up for the left breast. Comparison is made to exams dated: 02/13/2020 mammogram, 01/29/2020 mammogram, and 01/29/2019 mammogram - [facility]. There are scattered fibroglandular elements in left breast. Unchanged 0.3 cm oval low density asymmetry with indistinct margin in the left breast middle depth superior region seen on the mediolateral oblique view only. Unchanged 0.6 cm oval equal density asymmetry with indistinct margin in the left breast posterior depth superior region seen on the mediolateral oblique view only. No other significant masses or calcifications are seen in the breast. IMPRESSION: INCOMPLETE: NEEDS ADDITIONAL IMAGING EVALUATION Subtle asymmetries are unchanged and are benign. These require no additional follow-up. Return to screening mammography is recommended, which should be in approximately 6 months. Ultrasound is recommended today, in order to document stability in a small complicated cyst in the left breast. This is scheduled to immediately follow this exam. This exam was interpreted at Station ID: [id number]. NOTE: For mammograms, a report in lay terms will be sent to the patient. Approximately 15% of breast malignancies will not be visualized mammographically. In the management of a palpable breast mass, a negative mammogram must not discourage biopsy of a clinically suspicious lesion. Electronically Signed By: Chao Cooney M.D. jr/:08/25/2020 10:25:06 ACR BI-RADS Category 0: Incomplete 3340F
--- NOTE | 2020-08-25 | DI.US.S_ITS ---
LIMITED ULTRASOUND OF LEFT BREAST AND AXILLA: 08/25/2020 CLINICAL: Patient returns today to evaluate a density in the left breast. Comparison made with the prior breast ultrasound exam. Ultrasound of the left breast 1-2 o'clock, retroareolar, and axilla regions was performed. Previously described tiny complicated cyst is unchanged and is benign. No significant abnormalities were seen sonographically in the left breast. IMPRESSION: NEGATIVE There is no sonographic evidence of malignancy. Previously described tiny complicated cyst is unchanged and is benign. Return to annual mammogram screening schedule is recommended. This exam was interpreted at Station ID: [id number]. Electronically Signed By: Chao Cooney M.D. jr/:08/25/2020 10:26:36 letter sent: Normal Exam Ultrasound BI-RADS: 1 Negative
== END ==
PROVIDERS: PCP Internal Medicine; Referring Provider Internal Medicine; Visit Provider Internal Medicine
DX: R92.8 Other abnormal and inconclusive findings on diagnostic imaging of breast (principal); N60.02 Solitary cyst of left breast
CPT/HCPCS: 76642; 77065; G0279

== ENCOUNTER → 2021-02-02 08:19 | Outpatient (CLI) | payer MEDICARE, SELFPAY ==
[2018-10-07 16:19] VITALS: BMI 34.2
--- NOTE | 2021-02-02 08:22 | DI.MG.S_ITS ---
BILATERAL DIGITAL SCREENING MAMMOGRAM 3D/2D WITH CAD: 02/02/2021 CLINICAL: Routine screening. Family history of breast cancer. Comparison is made to exams dated: 08/25/2020 mammogram, 02/13/2020 mammogram, and 01/29/2020 mammogram - [facility]. There are scattered fibroglandular elements in both breasts. Current study was also evaluated with a Computer Aided Detection (CAD) system. There are benign post operative findings in the left breast. No significant masses, calcifications, or other findings are seen in either breast. There has been no significant interval change. IMPRESSION: BENIGN There is no mammographic evidence of malignancy. A 1 year screening mammogram is recommended. This exam was interpreted at Station ID: [id number]. NOTE: For mammograms, a report in lay terms will be sent to the patient. Approximately 15% of breast malignancies will not be visualized mammographically. In the management of a palpable breast mass, a negative mammogram must not discourage biopsy of a clinically suspicious lesion. Electronically Signed By: Emely sauceda/janny:02/02/2021 09:40:46 letter sent: Normal Exam ACR BI-RADS Category 2: Benign Finding(s) 3342F
== END ==
PROVIDERS: PCP Internal Medicine; Referring Provider Internal Medicine; Visit Provider Internal Medicine
DX: Z12.31 Encounter for screening mammogram for malignant neoplasm of breast (principal)
CPT/HCPCS: 77063; 77067

== ENCOUNTER → 2021-02-14 07:19 | Outpatient (CLI) | payer MEDICARE, SELFPAY ==
[2018-10-07 16:19] VITALS: BMI 34.2
[2021-02-14 08:34] LABS: Alanine Aminotransferase 24 IU/L (<35); Albumin 4.6 g/dL (3.5-5.0); Albumin Globulin Ratio 1.6 (1.0-2.8); Alkaline Phosphatase 88 U/L (38-126); Aspartate Aminotransferase 25 IU/L (14-36); BUN Creatinine Ratio 29.3 (6-22); Bilirubin Total 0.4 mg/dL (0.2-1.3); Blood Urea Nitrogen 24 mg/dL (7-17); Carbon Dioxide 25 mmol/L (22-32); Chloride 107 mmol/L (98-107); Cholesterol 210 mg/dL (140-199); Estimated Glomerular Filt Rate > 60.0 mL/min (>60); Globulin 2.8 g/dL (1.7-4.1); Glucose 113 mg/dL (80-110); HDL Cholesterol 46 mg/dL (40-60); HEMOLYSIS < 15 (0-50); LDL Cholesterol Calculated 135 mg/dL (<100); Sodium 141 mmol/L (137-145); Total Protein 7.4 g/dL (6.3-8.2); Triglycerides 143 mg/dL (35-150)
== END ==
PROVIDERS: PCP Internal Medicine; Referring Provider Internal Medicine; Visit Provider Internal Medicine
DX: E78.5 Hyperlipidemia, unspecified (principal)
CPT/HCPCS: 36415; 80053; 80061

== ENCOUNTER → 2022-02-09 08:02 | Outpatient (CLI) | payer MEDICARE, SELFPAY ==
[2018-10-07 16:19] VITALS: BMI 34.2
--- NOTE | 2022-02-09 | DI.MG.S_ITS ---
BILATERAL DIGITAL SCREENING MAMMOGRAM 3D/2D WITH CAD: 02/09/2022 CLINICAL: Routine screening. Family history of breast cancer. Comparison is made to exams dated: 02/02/2021 mammogram, 01/29/2020 mammogram, 01/29/2019 mammogram, and 01/23/2018 mammogram - [facility]. There are scattered fibroglandular elements in both breasts. Current study was also evaluated with a Computer Aided Detection (CAD) system. There are benign post operative findings in the left breast. No significant masses, calcifications, or other findings are seen in either breast. There has been no significant interval change. IMPRESSION: BENIGN There is no mammographic evidence of malignancy. A 1 year screening mammogram is recommended. This exam was interpreted at Station ID: [id number]. NOTE: For mammograms, a report in lay terms will be sent to the patient. Approximately 15% of breast malignancies will not be visualized mammographically. In the management of a palpable breast mass, a negative mammogram must not discourage biopsy of a clinically suspicious lesion. Electronically Signed By: Van cade/janny:02/09/2022 13:17:38 letter sent: Normal Exam ACR BI-RADS Category 2: Benign Finding(s) 3342F
== END ==
PROVIDERS: PCP Internal Medicine; Referring Provider Internal Medicine; Visit Provider Internal Medicine
DX: Z12.31 Encounter for screening mammogram for malignant neoplasm of breast (principal); Z80.3 Family history of malignant neoplasm of breast
CPT/HCPCS: 77063; 77067

== ENCOUNTER → 2022-03-17 09:43 | Outpatient (CLI) | payer MEDICARE, SELFPAY ==
[2018-10-07 16:19] VITALS: BMI 34.2
== END ==
PROVIDERS: PCP Internal Medicine; Referring Provider Internal Medicine; Visit Provider Internal Medicine
DX: Z13.820 Encounter for screening for osteoporosis; Z78.0 Asymptomatic menopausal state
CPT/HCPCS: 77080

== ENCOUNTER → 2022-09-29 13:03 | Outpatient (CLI) | payer MEDICARE, SELFPAY ==
[2018-10-07 16:19] VITALS: BMI 34.2
[2022-09-29 15:08] LABS: COVID19 -Nasal RAPID Negative (Negative)
== END ==
PROVIDERS: PCP Internal Medicine; Visit Provider Surgery
DX: Z20.822 Contact with and (suspected) exposure to COVID-19 (principal); Z01.812 Encounter for preprocedural laboratory examination
CPT/HCPCS: 87635; C9803

== ENCOUNTER 2022-10-02 14:22 | Day surgery (SDC) | payer MEDICARE, SELFPAY ==
[2018-10-07 16:19] VITALS: BMI 34.2
--- NOTE | 2022-10-02 | PATH_ITS ---
[facility] Accession Number: [id number] . 01 Material submitted: . PART A: colon - RIGHT COLON BIOPSY PART B: colon - LEFT COLON BIOPSY . 01 Diagnosis: A. Right Colon, Biopsy: Lymphocytic colitis. See comment. . B. Left Colon, Biopsy: Lymphocytic colitis. See comment. . . COMMENT: The findings are consistent with lymphocytic colitis. A trichrome special stain does not show significant thickening of the basement membrane, arguing against collagenous colitis. Mild neutrophilic activity is present within the colonic mucosa, which may be considered normal in this entity; however, given the extent in this case, it may raise the possibility of a superimposed infectious etiology and/or drug/toxic injury. There is no evidence of dysplasia or malignancy. There is no evidence of chronic injury. . Dr. Missael Obregon (GI pathology) reviewed this case and concurs with the interpretation. MRV 10/10/2022 1247 Local . 01 Electronically signed: . Edwina Shields MD, Pathologist NPI- [id number] . 01 Gross description: . Part A: RIGHT COLON BIOPSY: Received in formalin are 2 fragment(s) of culp, soft tissue measuring 0.3 x 0.1 x 0.1 cm to 0.1 x 0.1 x 0.1 cm submitted entirely in 1 cassette(s) Part B: LEFT COLON BIOPSY: Received in formalin are 2 fragment(s) of culp, soft tissue measuring 0.2 x 0.2 x 0.1 cm to 0.1 x 0.1 x 0.1 cm submitted entirely in 1 cassette(s) /CPE 10/04/2022 0722 Local . 01 Microscopic: . Trichrome special stain is performed on blocks A and B followed by H/E deepers to evaluate the basement membrane, with appropriately staining external controls. There is no significant thickening of the basement membrane, arguing against collagenous colitis. . 01 Pathologist provided ICD-10: K52.832 . 01 CPT . 358967, 474364, 886229, 889047 Specimen Comment: A courtesy copy of this report has been sent to [phone] Performed at: 01 [facility] [address] [place] [address] [address], [place], [place] [id number] MD Ralph Cazares MD Phone: [phone]
[2022-10-02 14:34] VITALS: BMI 37.3
[2022-10-02 14:43] VITALS: BP 157/89; PULSE 96; RESP 24; TEMP 36.3; O2SAT 97
--- NOTE | 2022-10-02 14:44 | PM.HP.1 ---
History of Present Illness History of Present Illness Date Patient Seen: 10/02/22 Time Patient Seen: 14:44 Chief complaint: SDC Narrative: I reviewed the recent clinic note by Dr. Bailey. No changes. Diarrhea has been going on for more than 4 months. Patient History Medical History Arthritis Borderline hyperlipidemia Chronic constipation Sleep apnea Surgical History H/O left breast biopsy History of appendectomy History of bilateral carpal tunnel release History of left breast biopsy Family & Social History Family History Grandmother Breast cancer Cancer Grandfather Prostate CA Mother Diabetes mellitus Stroke Father Heart disease Social History: household members spouse Tobacco & Substance use: Smoking Status Never smoker alcohol intake current alcohol intake frequency holiday/special occasion Substance Use Type does not use Meds Home Medications and Allergies Home Medications Medication Instructions Recorded Confirmed Type aspirin 81 mg tablet,delayed 81 mg PO DAILY ##0 10/05/18 10/02/22 History release cetirizine 10 mg tablet (Aller-Dari) 5 mg PO DAILY PRN Allergy Symptoms 10/05/18 10/02/22 History ##0 sodium,potassium,mag sulfates 17.5 177 ml PO DAILY 2 doses #354 mL 07/06/20 10/02/22 Rx gram-3.13 gram-1.6 gram oral soln Allergies Allergy/AdvReac Type Severity Reaction Status Date / Time Sulfa (Sulfonamide Allergy Unknown nausea/vomi Verified 10/02/22 14:32 Antibiotics) ting [SULFA (SULFONAMIDE ANTIBIOTICS)] anesthesia AdvReac Severe Nausea Uncoded 10/02/22 14:33 Review of Systems Review of Systems ROS: Yes All systems reviewed with the patient and are negative except as otherwise documented Exam Const General: cooperative HENMT Head: normal to inspection Eyes General: appearance normal, both eyes and all related structures Neck Neck: normal visual inspection Chest Chest: normal inspection of the chest Resp Effort & Inspection: normal respiratory effort Cardio Rate: regular rate GI Inspection: normal to inspection Skin General: no rashes or lesions noted Neuro General: patient alert and patient awake Extrem General: normal to inspection and no pedal edema Psych Appearance: grossly normal Assessment & Plan Assessment & Plan narrative: 67-year-old female with chronic diarrhea of uncertain etiology. Colonoscopy is pursued today. Time Spent With Patient Critical Care time: I spent a total of [] minutes of critical care time on this patient's care today; this time is exclusive of procedural time.
--- NOTE | 2022-10-02 14:45 | PM.PREOP ---
Pre-operative Note COVID-19 COVID-19 status: Negative Result date/Date tested (Pos, Neg/Pending): 09/29/22 Criteria for continued procedure: Possibility delay results in more complex future surgery or treatment Interval Note History & Physical reviewed/Exam performed by Physician: Yes Changes to H&P: No ASA Class (for procedural sedation): II
[2022-10-02] MEDS: LACTATED RINGERS 1,000 ML 42 ML IV (14:47)
--- NOTE | 2022-10-02 15:50 | PM.OP.COLON ---
Operative Date/Time/Diagnoses Date of procedure: 10/02/22 Time of procedure: 15:50 Pre-op diagnosis: Diarrhea Post-op diagnosis: same Procedure & Clinicians Study performed: Colonoscopy with biopsies Indications: Diarrhea Surgeon: Boone Sykes Procedure Notes SCOAP/Timeout: Done Procedure in detail: After the risks and benefits were explained, written and verbal informed consent was obtained. The patient was brought into the procedure room and placed into the left lateral decubitus position. Please see nurse maintenance controller notes for sedation details. Digital rectal examination was accomplished. The scope was introduced into the patient and advanced under direct visualization to the cecum as identified by the appendiceal orifice and ileocecal valve. The scope was slowly withdrawn to carefully examine the mucosa for any defects or lesions. Comprehensive imaging was accomplished throughout the rectum including the dentate line. The colon was decompressed, the scope was then removed from the patient who tolerated the procedure well. Adult colonoscope Bowel prep adequate Scope withdrawal time: 9 minutes Sedation minutes: 20 Complications: none Impression: There was an element of diverticulosis noted throughout the sigmoid. I did not appreciate any evidence of macroscopic colitis or proctitis. There was some very minimal subtle erythema noted in the right colon. I took random right colon biopsies and then a separate set of random left colon biopsies for histopathologic analysis. Terminal ileum was interrogated and appeared visually normal. Grade 2 hemorrhoids were noted on direct views. Endoscopic diagnosis 1. Grade 2 hemorrhoids 2. Diverticulosis 3. Otherwise visually unremarkable colonoscopy and terminal ileoscopy Post-procedure Plan for aftercare: 1. Await histopathology. 2. Considering family history, repeat colonoscopy 5 years. Disposition: PACU
[2022-10-02 15:53] VITALS: BP 118/77; PULSE 70; RESP 16; TEMP 36.4; O2SAT 98
[2022-10-02 15:58] VITALS: BP 124/84; PULSE 71; RESP 20; O2SAT 97
[2022-10-02 16:03] VITALS: BP 153/89; PULSE 70; RESP 16; TEMP 36.4; O2SAT 98
[2022-10-02 16:08] VITALS: BP 141/87; PULSE 61; RESP 18; O2SAT 98
[2022-10-02 16:18] VITALS: BP 157/88; PULSE 66; RESP 20; O2SAT 99
== END 2022-10-02 16:25 | disposition home or self-care (01) ==
PROVIDERS: PCP Internal Medicine; Referring Provider Internal Medicine Gastroenterology; Visit Provider Internal Medicine Gastroenterology
PROC: 0DJD8ZZ Inspection of Lower Intestinal Tract, Via Natural or Artificial Opening Endoscopic (ICD-10-PCS; CPT 45378; principal; 2022-10-02 15:00)
DX: K52.832 Lymphocytic colitis (principal); K64.1 Second degree hemorrhoids; K57.30 Diverticulosis of large intestine without perforation or abscess without bleeding
CPT/HCPCS: 45380; J1100; J2405; J2704

== ENCOUNTER 2023-01-01 13:45 | Day surgery (SDC) | payer MEDICARE, SELFPAY ==
[2018-10-07 16:19] VITALS: BMI 34.2
--- NOTE | 2023-01-01 | PATH_ITS ---
[facility] Accession Number: [id number] No. of containers..02 Tissue . 01 Material submitted: . PART A: gastrointestinal site - GASTRIC EROSIONS PART B: body - POLYPS . 01 Diagnosis: A. Gastric Erosions, Biopsy: Gastric mucosa with mild chronic inflammation. No Helicobacter pylori organisms identified on immunohistochemical evaluation. No intestinal metaplasia, dysplasia, or malignancy identified. . B. Specimen Designated Polyps, Biopsy: Gastric hyperplastic polyps. No Helicobacter pylori organisms identified on H/E stain. No intestinal metaplasia, dysplasia, or malignancy identified. . MRV 01/05/2023 1345 Local . 01 Electronically signed: . Justina Justice MD, Pathologist NPI- [id number] . 01 Gross description: . Part A: GASTRIC ERROSIONS: Received in formalin are 3 fragment(s) of culp, soft tissue measuring 0.4 x 0.2 x 0.1 cm to 0.1 x 0.1 x 0.1 cm submitted entirely in 1 cassette(s) Part B: POLYPS: Received in formalin are 2 fragment(s) of culp, soft tissue measuring 0.2 x 0.2 x 0.1 cm to 0.2 x 0.1 x 0.1 cm submitted entirely in 1 cassette(s) /CPE 01/02/2023 0619 Local . 01 Microscopic: . A. An immunohistochemical stain was performed to evaluate for Helicobacter organisms and is negative. The control stain showed appropriate reactivity. . * This test was developed and its performance characteristics determined by [employer]. It has not been cleared or approved by the U.S. Food and Drug Administration. The FDA has determined that such clearance or approval is not necessary. This test is used for clinical purposes. It should not be regarded as investigational or for research. . 01 Pathologist provided ICD-10: K25.9, D13.1, K29.70 . 01 CPT . 228387, 314527, G61456 Specimen Comment: A courtesy copy of this report has been sent to [phone] Performed at: 01 [facility] [address] [place] [address], [place], [place] [id number] MD Ralph Cazares MD Phone: [phone]
[2023-01-01 14:00] VITALS: BP 148/86; PULSE 72; RESP 18; TEMP 36.2; O2SAT 99; BMI 38.0
[2023-01-01] MEDS: LACTATED RINGERS 1,000 ML 84 ML IV (14:22)
--- NOTE | 2023-01-01 15:18 | PM.HP.1 ---
History of Present Illness History of Present Illness Date Patient Seen: 01/01/23 Time Patient Seen: 15:18 Chief complaint: SDC Narrative: Persistent dyspepsia in the face of NSAIDs. Only partial relief with PPI. Patient History Medical History Arthritis Borderline hyperlipidemia Chronic constipation Sleep apnea Surgical History H/O left breast biopsy History of appendectomy History of bilateral carpal tunnel release History of left breast biopsy Family & Social History Family History Grandmother Breast cancer Cancer Grandfather Prostate CA Mother Diabetes mellitus Stroke Father Heart disease Social History: household members spouse Tobacco & Substance use: Smoking Status Never smoker alcohol intake current alcohol intake frequency holiday/special occasion Substance Use Type does not use Meds Home Medications and Allergies Home Medications Medication Instructions Recorded Confirmed Type cetirizine 10 mg tablet (Aller-Dari) 5 mg PO DAILY PRN Allergy Symptoms 10/05/18 01/01/23 History ##0 ascorbic acid (vitamin C) 100 mg mg 01/01/23 History tablet (Vitamin C) cholecalciferol (vitamin D3) 25 25 mcg PO DAILY 01/01/23 01/01/23 History mcg (1,000 unit) tablet (Vitamin D3) cyanocobalamin (vitamin B-12) tab PO 01/01/23 History omeprazole 20 mg capsule,delayed 20 mg PO DAILY 01/01/23 01/01/23 History release psyllium packet 01/01/23 History vitamin B complex cap 01/01/23 History Allergies Allergy/AdvReac Type Severity Reaction Status Date / Time Sulfa (Sulfonamide Allergy Unknown nausea/vomi Verified 01/01/23 14:04 Antibiotics) ting [SULFA (SULFONAMIDE ANTIBIOTICS)] anesthesia AdvReac Severe Nausea Uncoded 01/01/23 14:04 Review of Systems Review of Systems ROS: Yes All systems reviewed with the patient and are negative except as otherwise documented Exam Vital Signs (past 8 hours): - 01/01/23 14:00 Temperature 97.2 F L Pulse Rate 72 Respiratory Rate 18 Blood Pressure 148/86 H Pulse Oximetry 99 Oxygen Delivery Method Room Air Oxygen Delivery Method Room Air Const General: cooperative HENMT Head: normal to inspection Eyes General: appearance normal, both eyes and all related structures Neck Neck: normal visual inspection Chest Chest: normal inspection of the chest Resp Effort & Inspection: normal respiratory effort Cardio Rate: regular rate GI Inspection: normal to inspection Skin General: no rashes or lesions noted Neuro General: patient alert and patient awake Extrem General: normal to inspection and no pedal edema Psych Appearance: grossly normal Assessment & Plan Assessment & Plan narrative: 67-year-old female with burning epigastric and slightly right of center abdominal pain in the face of sporadic NSAID use. Only partial relief has been achieved with PPI. Diagnostic EGD is pursued today. Time Spent With Patient Critical Care time: I spent a total of [] minutes of critical care time on this patient's care today; this time is exclusive of procedural time.
--- NOTE | 2023-01-01 15:20 | PM.PREOP ---
Pre-operative Note Interval Note History & Physical reviewed/Exam performed by Physician: Yes Changes to H&P: Yes ASA Class (for procedural sedation): II
[2023-01-01 15:37] VITALS: BP 123/75; PULSE 65; RESP 16; TEMP 36.2; O2SAT 95
--- NOTE | 2023-01-01 15:37 | P.OP.EGD_ITS ---
Operative Date/Time/Diagnoses Date of procedure: 01/01/23 Time of procedure: 15:37 Pre-op diagnosis: Dyspepsia despite PPI Post-op diagnosis: same Procedure & Clinicians Study performed: EGD with biopsies Same procedure as scheduled: Yes Indications: Dyspepsia despite PPI. Surgeon: Boone Sykes Procedure Notes SCOAP/Timeout: Done Procedure in detail: After the risks and benefits were explained, written and verbal informed consent was obtained. The patient was brought into the procedure room and placed into the left lateral decubitus position. Please see anesthesia notes for sedation details. The scope was introduced into the mouth through the bite block and advanced under direct visualization to the 2nd portion of the duodenum. The scope was slowly withdrawn carefully examining the mucosa for any defects or lesions. Retroflexed views were accomplished in the stomach. The stomach was decompressed, the scope was then removed from the patient who tolerated the procedure well. Sedation minutes: 11 Complications: none Impression: 1. Duodenum: This was normal from the bulb through to the 2nd portion. 2. Stomach: No gastric outlet obstruction. No mass lesions. There were 5 or 6 small bland based ulcerations in the proximal antrum. Several of these were sampled with cold forceps for histopathology and exclusion of H pylori. A little more proximally there was evidence of well healed and well epithelialized old linear ulceration. There were a couple of diminutive benign-appearing polyps that were sampled for histopathologic analysis from the gastric body. Retroflexed views disclosed a small sliding hiatal hernia. 3. Esophagus: The squamocolumnar junction correlated with the top of the gas tric folds. GEJ was at about 37 cm from the incisors. No evidence of any erosive esophagitis no strictures no mass lesions. The esophagus was unremarkable. Endoscopic diagnosis 1. Scattered gastric punctate ulcerations 2. Small hiatal hernia 3. Diminutive gastric polyps Post-procedure Plan for aftercare: 1. Await histopathology. 2. Stop using nonsteroidal anti-inflammatory medications. 3. If Helicobacter is found it will need to be eradicated with standard triple therapy recognizing allergy to sulfa. 4. Continue omeprazole once daily. Disposition: PACU
[2023-01-01 15:42] VITALS: BP 132/73; PULSE 68; RESP 16; O2SAT 97
[2023-01-01 15:47] VITALS: BP 140/78; PULSE 68; RESP 16; O2SAT 97
[2023-01-01 15:50] VITALS: BP 134/74; PULSE 64; RESP 16; O2SAT 97
[2023-01-01 15:57] VITALS: BP 144/80; PULSE 62; RESP 16; TEMP 36.2; O2SAT 98
== END 2023-01-01 16:19 | disposition home or self-care (01) ==
PROVIDERS: PCP Internal Medicine; Referring Provider Internal Medicine Gastroenterology; Visit Provider Internal Medicine Gastroenterology
PROC: 0DJ08ZZ Inspection of Upper Intestinal Tract, Via Natural or Artificial Opening Endoscopic (ICD-10-PCS; CPT 43235; principal; 2023-01-01 14:45)
DX: K25.9 Gastric ulcer, unspecified as acute or chronic, without hemorrhage or perforation (principal); K31.7 Polyp of stomach and duodenum; K44.9 Diaphragmatic hernia without obstruction or gangrene; K29.50 Unspecified chronic gastritis without bleeding
CPT/HCPCS: 43239; J2704; J3010

== ENCOUNTER → 2023-02-10 08:10 | Outpatient (CLI) | payer MEDICARE, SELFPAY ==
[2018-10-07 16:19] VITALS: BMI 34.2
--- NOTE | 2023-02-10 08:13 | DI.MG.S_ITS ---
BILATERAL DIGITAL SCREENING MAMMOGRAM 3D/2D WITH CAD: 02/10/2023 CLINICAL: Routine screening. Family history of breast cancer. Comparison is made to exams dated: 02/09/2022 mammogram, 02/02/2021 mammogram, 01/29/2020 mammogram, and 01/29/2019 mammogram - [facility]. There are scattered areas of fibroglandular density in both breasts (category b / 25%-50% glandular tissue). Current study was also evaluated with a Computer Aided Detection (CAD) system. There are benign post operative findings in the left breast. No significant masses, calcifications, or other findings are seen in either breast. There has been no significant interval change. IMPRESSION: BENIGN There is no mammographic evidence of malignancy. A 1 year screening mammogram is recommended. Based on the Tyrer Cuzick model (a risk assessment model) the patient's lifetime risk is 15.3% and her 10 year risk is 9.2%. According to the ACR, ACS, and NCCN guidelines, an annual breast MRI exam along with mammogram is recommended if the patient's lifetime risk is 20% or greater. This exam was interpreted at Station ID: [id number]. NOTE: For mammograms, a report in lay terms will be sent to the patient. Approximately 15% of breast malignancies will not be visualized mammographically. In the management of a palpable breast mass, a negative mammogram must not discourage biopsy of a clinically suspicious lesion. Electronically Signed By: Elliott [email or web address]:02/12/2023 07:50:43 letter sent: Normal Exam ACR BI-RADS Category 2: Benign Finding(s) [id number]
== END ==
PROVIDERS: PCP Internal Medicine; Referring Provider Internal Medicine; Visit Provider Internal Medicine
DX: Z12.31 Encounter for screening mammogram for malignant neoplasm of breast (principal)
CPT/HCPCS: 77063; 77067